=== PATIENT | male | born 1980 | race Hispanic/Latino ===

== ENCOUNTER 2019-04-25 19:51 | Emergency (ER) | payer OTHER ==
[~2019-04-25] VITALS: Ht 170.2 cm; Wt 97.5 kg
--- OUTSIDE RECORDS SUMMARY | 2019-04-25 19:53 | XMS REPORT | Continuity of Care Document ---
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 Name Role Phone Bringme Information [employer] Unavailable Unavailable Problems No Data Provided for This Section Medications No Data Provided for This Section Allergies, Adverse Reactions, Alerts No Known Medication Allergies Immunizations No Data Provided for This Section Results No Data Provided for This Section Pathology Reports No Data Provided for This Section Diagnostic Reports No Data Provided for This Section Consultation Notes No Data Provided for This Section Discharge Summaries No Data Provided for This Section History and Physicals No Data Provided for This Section Vital Signs No Data Provided for This Section Encounters Location Location Details Encounter Type Encounter Number Reason For Visit Attending Provider ADM Date DC Date Status Source Outpatient [id number] [facility] 09/13/2016 Active [facility] Procedures No Data Provided for This Section Assessment and Plan No Data Provided for This Section Plan of Care No Data Provided for This Section Social History No Data Provided for This Section Family History No Data Provided for This Section Advance Directives No Data Provided for This Section Functional Status No Data Provided for This Section
[2019-04-25] MEDS ORDERED: IBUPROFEN 400 MG TAB PO ONE (21:45)
[2019-04-25] MEDS ORDERED: HYDROCODONE/APAP 5MG-325MG TAB PO PRN (21:45)
[2019-04-25] MEDS ORDERED: IBUPROFEN 200 MG TAB ONE (22:20)
[2019-04-25] MEDS ORDERED: HYDROCODONE/APAP 5MG-325MG TAB ONE (22:20)
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
[2019-04-26 00:05] VITALS: BP 119/72
--- NOTE | 2019-04-26 04:18 | NUR ---
NOTIFIED PT THAT HIS PRESCRIPTIONS HAD THE INCORRECT NAME, AND TO RETURN TO THE ER AND THE CORRECT NAME WOULD BE PT ON MEDICATION. THE NAME ON PRESCRIPTIONS IS THE [facility] NAME.
== END 2019-04-26 00:17 | disposition home or self-care (01) ==
LOC: FSED 19:51
DX: S40.011A Contusion of right shoulder, initial encounter (principal); M54.2 Cervicalgia; V43.52XA Car driver injured in collision with other type car in traffic accident, initial encounter; Y92.488 Other paved roadways as the place of occurrence of the external cause
CPT/HCPCS: 72050; 99283